=== PATIENT | female | born 1955 ===

== ENCOUNTER 2022-03-29 17:10 | Emergency (ER) | payer MEDICARE, MEDICAID, SELFPAY ==
[2022-03-29 17:32] VITALS: BP 153/72; PULSE 62; RESP 18; TEMP 35.7; O2SAT 99; BMI 26.6
--- NOTE | 2022-03-29 18:44 | ED_ITS ---
HPI - Neck Pain/Injury General Chief Complaint: Neck Pain/Injury Stated Complaint: rt shoulder and neck pain, no known injury Time Seen by Provider: 03/29/22 18:44 Mode of arrival: Ambulatory History of Present Illness HPI Narrative: 66-year-old female nonsmoker with history of hypertension, hyperlipidemia presents with family in the chief complaint of right-sided neck pain without obvious injury or overuse. Pain is worse with motion and improves with rest. S he states it is in the right side of her neck and in her upper shoulders of the right arm but denies any numbness, tingling or weakness of her upper extremities. She is had no fever or chills. She denies any blurred vision, trouble speech nor dizziness or lightheadedness. She is no chest pain or shortness of breath. She denies nausea, vomiting or diarrhea. She took 1 dose of Motrin and states it did little to help her, this was a few days ago. Related Data Previous Rx's Medication Instructions Recorded cyclobenzaprine 10 mg tablet 10 mg PO TID PRN muscle spasm #14 03/29/22 tabs ketorolac 10 mg tablet 10 mg PO Q6H PRN pain #14 tabs 03/29/22 lidocaine 5 % topical patch 1 patch topical DAILY #15 ea 03/29/22 (Lidoderm) Review of Systems Review of Systems Narrative: GENERAL: Denies chills, fatigue, malaise, fever, sweats. HEENT: Denies sinus pain, ear pain, sore throat, difficulty swallowing, dizziness. RESPIRATORY: Denies dyspnea, cough, wheezing, hemoptysis, sputum. CARDIOVASCULAR: Denies chest pain, palpitations, orthopnea, edema, GASTROINTESTINAL: Denies nausea, vomiting, abdominal pain, diarrhea, constipation, melena. : Denies dysuria, frequency, incontinence, hematuria, urinary retention. MUSCULOSKELETAL: See HPI SKIN: Denies rash, skin lesions, or other NEUROLOGIC: See HPI PSYCHIATRIC: No concerning psychosocial issues. 12 point review of systems is negative except for those stated above Patient History Social History Smoking Status: Never smoker Smoking Status: Never smoker Substance Use Type: does not use Exam Narrative Exam Narrative: GENERAL: [66] year old patient appears stated age. Well-developed patient, in mild distress. HEAD: Atraumatic. Normocephalic. EYES: Pupils equal round and reactive. Extraocular motions intact. No scleral icterus. No injection or drainage. ENT: Nose without bleeding, purulent drainage. Throat without erythema, tonsillar hypertrophy or exudate. Airway patent. NECK: Pain on palpation of right-sided paraspinal musculature into her traps. No worsening with axial loading. No measurable numbness, tingling or weakness of upper extremities. CARDIOVASCULAR: Regular rate and rhythm without murmurs, gallops, or rubs. RESPIRATORY: Clear to auscultation. Breath sounds equal bilaterally. No wheezes, rales, or rhonchi. GASTROINTESTINAL: Abdomen soft, non-tender, nondistended. EXTREMITIES: No edema or joint tenderness. BACK: Nontender without deformity or crepitance. No flank tenderness. NEURO: AOx3. SKIN: No rash or erythema of visible areas Initial Vital Signs Initial Vital Signs: Vital Signs Temperature 96.3 F L 03/29/22 17:32 Pulse Rate 62 03/29/22 17:32 Respiratory Rate 18 03/29/22 17:32 Blood Pressure 153/72 H 03/29/22 17:32 Pulse Oximetry 99 03/29/22 17:32 Oxygen Delivery Method 03/29/22 17:32 Course Orders Ordered: Discontinued Medications Cyclobenzaprine HCl (Cyclobenzaprine 10 Mg Tablet) 10 mg PO NOW ONE Stop: 03/29/22 19:11 Last Admin: 03/29/22 19:22 Dose: 10 mg Documented By: LINNEA Ketorolac Tromethamine (Ketorolac 30 Mg/Ml Vial) 30 mg IM NOW ONE Stop: 03/29/22 19:11 Last Admin: 03/29/22 19:22 Dose: 30 mg Documented By: LINNEA Lidocaine (Lidocaine Patch 1 Each Adh..Patch) 1 each TOP NOW ONE Stop: 03/29/22 19:11 Last Admin: 03/29/22 19:22 Dose: 1 each Documented By: LINNEA Vital Signs Vital signs: Vital Signs - 8 hr 03/29/22 17:32 03/29/22 19:54 Temperature 96.3 F L Pulse Rate 62 65 Respiratory Rate 18 16 Blood Pressure 153/72 H 160/75 H Pulse Oximetry 99 98 Oxygen Delivery Method Room Air Room Air MDM - Neck Pain/Injury MDM Narrative Medical decision making narrative: Patient with reproducible pain of the right-sided neck muscles, trapezius and upper shoulder. No radicular symptoms, no meningeal signs. No trauma. Improvement with above-stated therapies. This is most consistent with a musculoskeletal problem most likely muscle spasm of the named muscle groups. Will treat with anti-inflammatory, Lidoderm and Flexeril, patient given return precautions and questions answered to her apparent satisfaction Discharge Plan Departure Patient Disposition: Home Clinical Impression: Strain of neck muscle Instructions: DI for Neck Pain Activity Restrictions/Additional Instructions: *You have been diagnosed with [right-sided cervical paraspinal muscle spasm] *What to do: *Please continue to take your regular medications as directed. [ x] New medication prescriptions sent to your pharmacy: [ [facility] in [place]] [ ] New medication written as a paper prescription [ ] No new medications given *Please follow up with your primary care provider in 2-3 days, call for an appointment. Let them know you were seen in the Emergency Department and that we ask that you be seen in follow up. We will electronically transmit a record of today's note if your PCP is in our system *If you do not have a primary care provider please contact the [facility] Resource line at [phone]. They will ask some questions about your medical history and help get you set up with a doctor in the community. *Return to Emergency Department if you should have any new, worsening or co ncerning symptoms, such as [fever greater than 101 F, shaking chills, worsening pain, persistent vomiting or other bothersome symptoms] Prescriptions: New cyclobenzaprine 10 mg tablet 10 mg PO TID PRN (Reason: muscle spasm) Qty: 14 0RF ketorolac 10 mg tablet 10 mg PO Q6H PRN (Reason: pain) Qty: 14 0RF lidocaine [Lidoderm] 5 % adhesive patch,medicated 1 patch TOP DAILY Qty: 15 0RF Rx Instructions: leave on most painful area for 12 hrs Visit Report Forms: Patient Portal/API
[2022-03-29] MEDS: CYCLOBENZAPRINE 10 MG TABLET PO (19:22)
[2022-03-29] MEDS: LIDOCAINE PATCH 1 EACH ADH..PATCH TOP (19:22)
[2022-03-29] MEDS: KETOROLAC 30 MG/ML VIAL IM (19:22)
[2022-03-29 19:54] VITALS: BP 160/75; PULSE 65; RESP 16; O2SAT 98
== END 2022-03-29 19:54 | disposition home or self-care (01) ==
PROVIDERS: Emergency Provider Emergency Medicine
DX: S16.1XXA Strain of muscle, fascia and tendon at neck level, initial encounter (principal)
CPT/HCPCS: 96372; 99283; J1885